=== PATIENT | male | born 1985 | race Caucasian/White ===

== ENCOUNTER 2020-03-20 19:33 | Emergency (ER) | payer BC, MEDICAID ==
[2020-03-20 19:41] VITALS: BP 145/93; PULSE 82
[2020-03-20] MEDS: HYDROmorphone 1 MG/ML Syringe IM ONE (20:10)
[2020-03-20] MEDS: Bacitracin/Neomycin/Polymyxin B Oint 0.9 GM U/D Packet ONE (20:40)
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
== END 2020-03-20 21:15 | disposition home or self-care (01) ==
LOC: LL.ED 19:33
DX: S62.667A Nondisplaced fracture of distal phalanx of left little finger, initial encounter for closed fracture (principal); S61.213A Laceration without foreign body of left middle finger without damage to nail, initial encounter; S61.215A Laceration without foreign body of left ring finger without damage to nail, initial encounter; F41.9 Anxiety disorder, unspecified; F17.210 Nicotine dependence, cigarettes, uncomplicated; Z88.5 Allergy status to narcotic agent; Z79.899 Other long term (current) drug therapy; W26.8XXA Contact with other sharp object(s), not elsewhere classified, initial encounter; Y93.29 Activity, other involving ice and snow
CPT/HCPCS: 11740; 12002; 73140-LT; 96372; 99283-25; J1170; J2001

== ENCOUNTER → 2022-01-02 | Emergency (ER) | payer BC, MEDICAID ==
[2022-01-21 12:46] LABS: ANION GAP 7.7 meq/L (7-15); CHLORIDE,CL 103 mmol/L (98-107); ESTIMATED GFR 83 mL/min (>=60); SODIUM,NA 142 mmol/L (136-145)
== END ==
LOC: LL.ED 21:45
DX: I26.99 Other pulmonary embolism without acute cor pulmonale (principal); Z88.5 Allergy status to narcotic agent
CPT/HCPCS: 36415; 71046; 71275; 80053; 81001; 83735; 84484; 85025; 85379; 93005; 99285

== ENCOUNTER 2022-04-17 01:01 | Emergency (ER) | payer BC, MEDICAID ==
[2022-04-17] MEDS ORDERED: Iopamidol 755 Mg/ML 100 ML Bottle ONE (01:41)
[2022-04-17 01:50] LABS: CHLORIDE,CL 102 mmol/L (98-107); SODIUM,NA 139 mmol/L (136-145)
[2022-04-17 01:52] LABS: ANION GAP 11.7 meq/L (7-15); ESTIMATED GFR 103 mL/min (>=60)
[2022-04-17 02:39] VITALS: BP 119/79; PULSE 72
== END 2022-04-17 02:30 | disposition home or self-care (01) ==
LOC: LL.ED 01:01
DX: R07.89 Other chest pain (principal); M79.602 Pain in left arm; Z88.5 Allergy status to narcotic agent
CPT/HCPCS: 36415; 71275; 80053; 82550; 84484; 85025; 85379; 93005; 99285; Q9967

== ENCOUNTER 2023-02-05 14:57 | Emergency (ER) | payer BC, MEDICAID ==
[2023-02-05 15:02] VITALS: BP 135/83; PULSE 80
[2023-02-05] MEDS ORDERED: Tetracaine HCl/PF 0.5% 4 ML Bottle EYELF PRN (15:07)
[2023-02-05] MEDS ORDERED: Tetracaine HCl/PF 0.5% 4 ML Bottle ONE (15:12)
[2023-02-05] MEDS ORDERED: Erythromycin Base 0.5% Ophth Oint 3.5 GM Tube EYELF ONE (15:53)
== END 2023-02-05 16:18 | disposition home or self-care (01) ==
LOC: LL.ED 14:57
DX: T15.92XA Foreign body on external eye, part unspecified, left eye, initial encounter (principal); F17.210 Nicotine dependence, cigarettes, uncomplicated; Z88.5 Allergy status to narcotic agent; Z79.01 Long term (current) use of anticoagulants; W20.8XXA Other cause of strike by thrown, projected or falling object, initial encounter
CPT/HCPCS: 65220; 99283; A9270-GY; J3490

== ENCOUNTER 2023-04-07 19:42 | Emergency (ER) | payer BC, MEDICAID ==
[2023-04-07] MEDS: Meclizine 25 MG Tab PO ONE (20:31)
[2023-04-07 20:37] LABS: BASOPHILS ABSOLUTE AUTO 0.02 K/uL (0.00-0.20); BASOPHILS PERCENT AUTO 0.2 % (0.0-2.0); EOSINOPHILS PERCENT AUTO 1.2 % (0.0-5.0); HEMATOCRIT 47.8 % (39.0-49.0); HEMOGLOBIN 17.2 g/dL (13.1-16.8); LYMPHOCYTES ABSOLUTE AUTO 3.04 K/uL (0.50-3.50); LYMPHOCYTES PERCENT AUTO 35.1 % (10.0-50.0); MEAN CORPUSCULAR HEMOGLOBIN 34.2 pg (28.2-33.3); MONOCYTES ABSOLUTE AUTO 0.65 K/uL (0.00-1.00); MONOCYTES PERCENT AUTO 7.5 % (2.0-14.0); NEUTROPHILS ABSOLUTE AUTO 4.86 K/uL (1.40-7.00); PLATELET COUNT,PLT 225 K/uL (150-350); RED BLOOD CELL COUNT 5.03 M/uL (4.33-5.41); RED CELL DISTRIBUTION WIDTH 12.6 % (11.2-14.1); WHITE BLOOD CELL COUNT,WBC 8.7 K/uL (4.0-10.2)
[2023-04-07 21:01] LABS: ALANINE AMINOTRANSFERASE,ALT 70 U/L (12-78); ALBUMIN 4.1 g/dL (3.4-5.0); ALKALINE PHOSPHATASE 65 IU/L (46-116); ANION GAP 8.8 meq/L (7-15); ASPARTATE AMNIOTRANSFERASE,AST 29 U/L (15-37); BILIRUBIN TOTAL 0.3 mg/dL (0.2-1.0); BLOOD UREA NITROGEN,BUN 17 mg/dL (7-18); CALCIUM 8.9 mg/dL (8.5-10.1); CARBON DIOXIDE,CO2 28.2 mmol/L (21.0-32.0); CHLORIDE,CL 103 mmol/L (98-107); CREATININE 1.42 mg/dL (0.51-1.17); GLUCOSE RANDOM 95 mg/dL (70-99); MAGNESIUM 1.9 mg/dL (1.8-2.4); POTASSIUM,K 3.7 mmol/L (3.5-5.1); PROTEIN TOTAL,TP 7.6 g/dL (6.4-8.2); SODIUM,NA 140 mmol/L (136-145)
[2023-04-07 21:02] LABS: ESTIMATED GFR 66 mL/min (>=60)
[2023-04-07 21:21] LABS: CORONAVIRUS COVID-19 NAA NEGATIVE (NEGATIVE); INFLUENZA A NAA NEGATIVE (NEGATIVE); INFLUENZA B NAA NEGATIVE (NEGATIVE); RESPIRATORY SYNCYTIAL VIR NAA NEGATIVE (NEGATIVE)
[2023-04-07] MEDS: Sodium Chloride 0.9% 1,000 ML IV ONE (21:33)
[2023-04-07] MEDS: Sodium Chloride 0.9% 10 ML Syringe FLUSH PRN (21:34)
[2023-04-07] MEDS: Acetaminophen 500 MG Tab PO ONE (22:06)
[2023-04-07] MEDS: Ketorolac 15 MG/ML SDV IVPUSH ONE (22:07)
[2023-04-07] MEDS ORDERED: Sodium Chloride 0.9% 1,000 ML IV ONE (22:30)
[2023-04-07 22:45] VITALS: BP 132/88; PULSE 98
== END 2023-04-07 22:45 | disposition home or self-care (01) ==
LOC: LL.ED 19:42
DX: E86.0 Dehydration (principal); F17.210 Nicotine dependence, cigarettes, uncomplicated; Z88.5 Allergy status to narcotic agent; Z79.899 Other long term (current) drug therapy
CPT/HCPCS: 0241U; 36415; 70450; 80053; 83605; 83735; 85025; 96361; 96374; 99284; 99285-25; A9270-GY; J1885; J3490; J7030

== ENCOUNTER 2024-08-03 12:11 | Emergency (ER) | payer BC, MEDICAID ==
[2024-08-03 12:19] VITALS: BP 142/96; PULSE 79
[2024-08-03] MEDS: Lidocaine 2% 5 ML SDV INJECT ONE (12:44)
== END 2024-08-03 13:30 | disposition home or self-care (01) ==
LOC: LL.ED 12:11
DX: S60.451A Superficial foreign body of left index finger, initial encounter (principal); Z88.5 Allergy status to narcotic agent; W45.8XXA Other foreign body or object entering through skin, initial encounter
CPT/HCPCS: 73140; 99283; J2003